=== PATIENT | male | born 1985 | race Caucasian/White ===

== ENCOUNTER → 2019-11-26 12:48 | Outpatient (BNVA) | payer SELFPAY | PROVIDERS: Visit Provider Nurse Practitioner Family | DX: R42 Dizziness and giddiness (principal) | CPT/HCPCS: 36416; 80048; 82962 ==

== ENCOUNTER 2020-01-06 21:04 | Emergency (ER) | payer SELFPAY ==
[2020-01-06 21:09] VITALS: BP 150/101; PULSE 88; RESP 14; TEMP 36.2; O2SAT 95; BMI 31.9
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
[2020-01-06] MEDS: ketorolac 30 mg/mL INJ IM (21:27)
[2020-01-06] MEDS: HYDROcodone-acetaminophen 10-325 mg Tablet 1 TAB PO (21:27)
[2020-01-06] MEDS: tetanus-dipt-pertussis 0.5 mL SDV IM (21:48)
[2020-01-06] MEDS: HYDROcodone-acetaminophen 7.5-325 mg Tablet 2 TAB PO (22:46)
[2020-01-06] MEDS: bacitracin ointment 28 gm TOPICAL (22:47)
[2020-01-06 22:49] VITALS: BP 142/86; PULSE 98; RESP 20; O2SAT 102
== END 2020-01-06 22:52 | disposition home or self-care (01) ==
LOC: ER 21:24
PROVIDERS: Emergency Provider Nurse Practitioner Family
DX: T23.251A Burn of second degree of right palm, initial encounter (principal); X08.8XXA Exposure to other specified smoke, fire and flames, initial encounter; F17.210 Nicotine dependence, cigarettes, uncomplicated; Z23 Encounter for immunization
CPT/HCPCS: 12345; 16020; 90471; 90715; 96372; 99281; 99283; J1885

== ENCOUNTER 2020-12-14 17:51 | Emergency (ER) | payer SELFPAY ==
[2020-12-14 18:09] VITALS: BP 158/101; PULSE 98; RESP 24; TEMP 37; O2SAT 98; BMI 31.9
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
[2020-12-14] MEDS: ketorolac 30 mg/mL INJ IM (18:37)
[2020-12-14 18:38] VITALS: RESP 18
[2020-12-14] MEDS: morphine 4 mg/mL SDV 1 mL IM (18:38)
[2020-12-14] MEDS: lidocaine 2% viscous 15 mL UDC 10 ML MUCOUS MEM (18:39)
[2020-12-14 18:46] VITALS: O2SAT 99
[2020-12-14] MEDS: HYDROcodone-acetaminophen 10-325 mg Tablet 1 TAB PO (19:28)
[2020-12-14 19:31] VITALS: BP 154/101; PULSE 94; RESP 18; O2SAT 98
== END 2020-12-14 19:55 | disposition home or self-care (01) ==
PROVIDERS: Emergency Provider Nurse Practitioner Family
DX: T20.12XA Burn of first degree of lip(s), initial encounter (principal); F17.200 Nicotine dependence, unspecified, uncomplicated; X13.1XXA Other contact with steam and other hot vapors, initial encounter
CPT/HCPCS: 96372; 99283; J1885; J2270

== ENCOUNTER 2021-10-18 13:32 | Emergency (ER) | payer SELFPAY ==
[2021-10-18 13:43] VITALS: BP 148/93; PULSE 114; RESP 18; TEMP 36.8; O2SAT 97; BMI 29.6
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
--- NOTE | 2021-10-18 13:57 | XR_ITS ---
WS: [id number] Exam: XR forearm LT 2V [id number] Date/Time of Exam: 10/18/2021 2:00 PM Reason For Exam: trauma There is a nondisplaced fracture of the distal ulnar metaphysis with soft tissue swelling. No other f ractures of the forearm are identified. No dislocation. XR/XR forearm LT 2V [id number] IMPRESSION: 1. Nondisplaced fracture of the distal ulna with soft tissue swelling.
--- NOTE | 2021-10-18 13:57 | XR_ITS ---
WS: [id number] Exam: XR wrist LT min 3V* [id number] Date/Time of Exam: 10/18/2021 2:00 PM Reason For Exam: trauma There is a nondisplaced fracture of the distal ulna. No other fractures are seen. No dislocation. Sof t tissue edema along the ulnar aspect of the wrist. XR/XR wrist LT min 3V* [id number] IMPRESSION: 1. Nondisplaced distal ulnar fracture with associated soft tissue swelling.
--- NOTE | 2021-10-19 11:54 | DCPLANNER ---
Addendum entered by Rocio Ordoñez 10/22/21 10:25: Patient had a follow up appointment scheduled for 10.18.21 with ortho - patient did not attend appointment. Original Note: agriculture sales account manager had message to schedule a follow up appointment for patient with ortho. agriculture sales account manager sent patients information to the front office staff at ortho. Patients information will be printed and reviewed. Clinic will call patient with information,
== END 2021-10-18 15:47 | disposition home or self-care (01) ==
PROVIDERS: Emergency Provider Physician Assistant
DX: S52.692A Other fracture of lower end of left ulna, initial encounter for closed fracture (principal); W16.612A Jumping or diving into natural body of water striking water surface causing other injury, initial encounter
CPT/HCPCS: 29105; 73090; 73110; 99283

== ENCOUNTER 2023-01-07 18:12 | Emergency (ER) | payer SELFPAY ==
[2023-01-07] VITALS (7 sets, daily range): BP systolic 105–129; BP diastolic 58–84; PULSE 91–131; RESP 16–18; TEMP 36.8–39.4; O2SAT 92–96; BMI 29.9
--- NOTE | 2023-01-07 19:02 | XRR_ITS ---
PROCEDURE INFORMATION: Exam: XR Chest Exam date and time: 01/07/2023 7:12 PM Age: 37 years old Clinical indication: Fever and other: Tachy; Additional info: Fever, tachycardia TECHNIQUE: Imaging protocol: Radiologic exam of the chest. Views: 1 view. COMPARISON: No relevant prior studies available. FINDINGS: Lungs: Unremarkable. No consolidation. Pleural spaces: Unremarkable. No pleural effusion. No pneumothorax. Heart/Mediastinum: Unremarkable. No cardiomegaly. Bones/joints: Unremarkable. XR/XR chest 1V portable [id number] IMPRESSION: No acute findings.
--- NOTE | 2023-01-07 19:02 | CTR_ITS ---
PROCEDURE INFORMATION: Exam: CT Head Without Contrast Exam date and time: 01/07/2023 7:28 PM Age: 37 years old Clinical indication: Other: Swelling and pain posterior head; Additional info: Fever headache TECHNIQUE: Imaging protocol: Computed tomography of the head without contrast. Radiation optimization: All CT scans at this facility use at least one of these dose optimization techniques: automated exposure control; mA and/or kV adjustment per patient size (includes targeted exams where dose is matched to clinical indication); or iterative reconstruction. REPORTING DATA: Count of CT and Cardiac NM exams in prior 12 months: This patient has received 0 known CTs and 0 known cardiac nuclear medicine studies in the 12 months prior to the current study. COMPARISON: No relevant prior studies available. RADIATION DOSE METRICS: Total DLP (mGy-cm): 1094.38 FINDINGS: Brain: Normal. No hemorrhage. Unremarkable white matter. No mass effect. Cerebral ventricles: No ventriculomegaly. Paranasal sinuses: Visualized sinuses are unremarkable. No fluid levels. Mastoid air cells: Visualized mastoid air cells are well aerated. Bones/joints: Unremarkable. No acute fracture. Soft tissues: Unremarkable. CT/CT head wo con* [id number] IMPRESSION: No acute intracranial abnormality.
--- NOTE | 2023-01-07 19:11 | ECG_ITS ---
[facility] Test Date: 2023-01-07 Pat Name: Dean Meyer Department: Room: Gender: Male Crime Lab Technician: : 1985 Requested By: Arthur Guerra Order Number: [id number] Ortiz MD: Shannan Nelson M.D. Measurements Intervals Otter Rate: 108 P: 41 CA: 150 QRS: 57 QRSD: 92 T: 25 QT: 291 QTc: 391 Interpretive Statements SINUS TACHYCARDIA ABNORMAL RHYTHM ECG No previous ECG available for comparison Electronically Signed On 01-08-2023 3:49:45 CDT by Shannan Nelson M.D. [id number]
[2023-01-07] MEDS: sodium chloride 0.9% 1,000 ML 999 ML IV ×2 (19:16→20:24)
--- NOTE | 2023-01-07 19:18 | CTR_ITS ---
PROCEDURE INFORMATION: Exam: CT Neck With Contrast Exam date and time: 01/07/2023 7:31 PM Age: 37 years old Clinical indication: Neck pain; Additional info: L sided neck pain, swelling, fever TECHNIQUE: Imaging protocol: Computed tomography of the neck with contrast. Radiation optimization: All CT scans at this facility use at least one of these dose optimization techniques: automated exposure control; mA and/or kV adjustment per patient size (includes targeted exams where dose is matched to clinical indication); or iterative reconstruction. Contrast material: OMNI 350; Contrast volume: 100 ml; Contrast route: INTRAVENOUS (IV); REPORTING DATA: Count of CT and Cardiac NM exams in prior 12 months: This patient has received 0 known CTs and 0 known cardiac nuclear medicine studies in the 12 months prior to the current study. COMPARISON: CT head wo con* [id number] 01/07/2023 7:28 PM RADIATION DOSE METRICS: Total DLP (mGy-cm): 294.37 FINDINGS: Pharynx: Unremarkable. No significant tonsillar enlargement. Larynx: Unremarkable. Epiglottis is normal. Prevertebral and retropharyngeal spaces: Unremarkable. Salivary glands: Normal. Glands are normal in size. Thyroid: Normal. No enlarged or calcified nodules. Lymph nodes: Diffuse mildly prominent lymph nodes throughout the cervical soft tissues. Trachea: Visualized trachea is unremarkable. Lungs: Unremarkable as visualized. Bones/joints: Unremarkable. No acute fracture. Soft tissues: Unremarkable. No significant soft tissue swelling. CT/CT neck w con* [id number] IMPRESSION: Mildly prominent lymph nodes throughout the neck which are likely reactive. Otherwise, no acute findings.
[2023-01-07] MEDS: iohexol 350 mg/mL 500 mL Btl (per mL) IV (19:38)
[2023-01-07 19:39] LABS: Basophils # 0.1 10^3/uL (0.0-0.1); Basophils % 1.3 %; Eosinophils % 0.4 %; Hematocrit 44.5 % (42.0-52.0); Hemoglobin 15.8 g/dL (11.7-16.6); Mean Corpuscular HGB Conc 35.5 g/dL (30.0-36.0); Mean Corpuscular Hemoglobin 32.2 pg (28.0-34.0); Mean Corpuscular Volume 90.6 fl (80-94); Mean Platelet Volume 10.2 fL (7.4-10.4); Monocytes # 0.4 10^3/uL (0.2-0.9); Monocytes % 9.5 %; Neutrophils % 67.4 %; Nucleated Red Blood Cells % 0 %; Platelet Count 151 10^3/cmm (130-400); Red Blood Count 4.91 10^6/uL (4.1-5.3); Red Cell Distribution Width 11.8 % (12.1-15.1); White Blood Count 4.6 10^3/uL (4.0-10.0)
[2023-01-07] MEDS: acetaminophen 500 mg Tablet 1000 MG PO (19:42)
[2023-01-07 19:43] LABS: Erythrocyte Sedimentation Rate 8 mm/hr (0-10)
[2023-01-07] MEDS: piperacillin-tazobactam 4.5 GM in sodium chloride 0.9% (plus) 50 ML IV (19:43)
[2023-01-07 19:52] LABS: Lactic Sepsis W/Reflex 0.8 mmol/L (0.5-2.2)
[2023-01-07 20:01] LABS: Alanine Aminotransferase 72 U/L (0-41); Albumin Level 4.1 g/dL (3.5-5.2); Alkaline Phosphatase 87 U/L (40-130); Anion Gap 14.9 (5-19); Aspartate Amino Transferase 37 U/L (0-40); Blood Urea Nitrogen 10 mg/dL (6-20); C Reactive Protein 29.7 mg/L (0.0-4.9); Calcium 8.7 mg/dL (8.5-10.5); Carbon Dioxide 23 mmol/L (22-29); Chloride 98 mmol/L (98-107); Creatine Phosphokinase 111 U/L (39-308); Globulin 2.8 g/dL (1.3-4.6); Glomerular Filtration Rate 61.8 mL/min (90-130); Glucose 109 mg/dL (65-115); Osmolality Calculated 274 mOsm/kg (285-295); Potassium 3.9 mmol/L (3.5-5.1); Sodium 132 mmol/L (136-145); Total Bilirubin 1.1 mg/dL (0.15-1.2); Total Protein 6.9 g/dL (6.6-8.7)
[2023-01-07] MEDS: vancomycin 1,250 MG/250 ML PIGGYBACK 250 MG IV (20:01)
[2023-01-07 20:16] LABS: Add Urine Culture? No; Add Urine Microscopic? YES; Bacteria Urine TRACE /hpf; Bilirubin Urine 1+ (Negative); Blood Urine Neg (Negative); Glucose Urine UA Norm (Normal); Ketones Urine Negative (Negative); Leukocyte Esterase Urine Negative (Negative); Nitrate Urine Negative (Negative); Protein Urine Trace (Negative); Specific Gravity, Urine 1.005 (1.005-1.030); Urine Appearance Clear (CLEAR); Urine Color Yellow (Yellow); Urobilinogen Urine 4 mg/dL (Negative); pH Urine 5 (5-7)
--- NOTE | 2023-01-07 20:41 | ED_ITS ---
HPI - Back Pain/Injury General: Chief Complaint: Back Pain/Injury Stated Complaint: headache/back pain Time Seen by Provider: 01/07/23 19:02 History of Present Illness: 37-year-old male patient with a fever and body aches. He states that he was working on a truck several days ago, and raised up under the truck scraping his head. Since that time, he developed increasing pain, swelling, drainage from the wound which is now resolved. He was seen, and placed on antibiotics, with a diagnosis of MRSA. He is experiencing neck pain on the left side with some tenderness. He is also experiencing chills. No vomiting. He states that he has had some diarrhea. No coughing or shortness of breath. He does tell me that he has had a tetanus shot in the last 5 years. Associated symptoms: Reports fever(s); Deny abdominal pain, nausea or vomiting Review of Systems Const: Reports: fever(s) Eyes: Denies: change in vision ENMT: Denies: throat pain, swelling of lips/tongue, dental pain, ear discharge, nasal congestion, nasal obstruction, post nasal drip or sinus pain Card: Denies: chest pain Resp: Denies: dyspnea, productive cough or non-productive cough GI: Denies: abdominal pain, nausea or vomiting Musc: Reports: neck pain (muscular) Skin/Breast: Reports: erythema Neuro: Reports: headache(s) [facility] ED PFSH: Social History Smoking and tobacco status: current every day smoker Alcohol intake: current Physical Exam Const: COMMON NORMALS: no acute distress GENERAL APPEARANCE: cooperative; not ill appearing and not frail appearing HENMT: COMMON NORMALS: normocephalic and Normal external nose present HEAD & SCALP: normocephalic and scalp lesion (small abrasion left parietal. escar present. minimal tenderness) FACE & SINUS: normal facial exam and face symmetric NOSE: Normal external nose present THROAT: posterior oropharynx normal and uvula midline Eye: COMMON NORMALS: Equal, round and reactive pupils present and EOMs intact bilaterally PUPIL: Yes Equal, round and reactive pupils present Neck/C-Spine: COMMON NORMALS: full ROM and no meningeal signs GENERAL: Yes trachea midline, Yes lymphadenopathy (mainly left sided) Lymphadenopathy lo cation: anterior cervical and posterior cervical and No tracheal deviation CERVICAL SPINE: No Cervical spine tenderness and Yes Paracervical muscle tenderness Chest: CHEST: Yes Symmetrical chest wall rise Resp: COMMON NORMALS: normal respiratory effort, No retractions, No use of accessory muscles and clear to auscultation bilaterally AUSCULTATION: clear to auscultation bilaterally Cardio: COMMON NORMALS: regular rhythm RATE: tachycardic RHYTHM: regular rhythm GI: COMMON NORMALS: Normal to inspection, nondistended, normoactive bowel sounds present Extremity: COMMON NORMALS: no pedal edema Neuro: PERLITA COMA SCALE: document GCS findings Snyder coma scale eye o pening: Spontaneous Perlita coma scale verbal response: Orientated Snyder coma scale motor response: Obey commands Snyder coma scale total score: 15 MENINGEAL SIGNS: Yes no meningeal signs SENSORY EXAM: Yes extremities (intact) Psych: COMMON NORMALS: speech normal SPEECH: Yes normal speech Skin: COMMON NORMALS: no rashes or lesions noted GENERAL SKIN EXAM: no rashes or lesions noted Course Vital Signs: Vital signs: Vital Signs Temperature 100.7 F H 01/07/23 21:53 Pulse Rate 91 01/07/23 22:28 Respiratory Rate 16 01/07/23 22:28 Blood Pressure 109/63 01/07/23 22:28 Pulse Oximetry 92 01/07/23 22:28 Oxygen Delivery Me thod Room Air 01/07/23 21:53 MDM - Back Pain/Injury Medical Decision Making Given the patient's high fever. Blood cultures and lactic were drawn. Patient is given a 2 L bolus, and Tylenol. White blood cell count is normal at 4.6. Creatinine is 1.3. His scalp exam is not impressive. He does have some shotty lymphadenopathy in the neck. No meningeal signs. Chest x-ray is negative. He ad CT is negative. CT of the neck soft tissues reveals lymphadenopathy/lymphadenitis CRP is 30. Lactic acid is 0.8. Urinalysis is negative. Platelet count is 150. Given mild decrease in platelet count, mild decrease in white blood cell count and high fever, tick panel is sent. Antibiotics will be switched from Bactrim to doxycycline. Patient reports she has had a tetanus shot in the last 5 years. Patient knows to return for any worsening symptoms. Labs 01/07/23 19:22 01/07/23 19:22 Radiology Impressions Chest X-Ray 01/07/23 19:02 IMPRESSION: No acute findings. Head CT 01/07/23 19:02 IMPRESSION: No acute intracranial abnormality. Neck CT 01/07/23 19:18 IMPRESSION: Mildly prominent lymph nodes throughout the neck which are likely reactive. Otherwise, no acute findings. Laboratory Results WBC 4.6 10^3/uL (4.0-10.0) 01/07/23 19: RBC 4.91 10^6/uL (4.1-5.3) 01/07/23: Hgb 15.8 g/dL (11.7-16.6) 01/07/23 19: Hct 44.5 % (42.0-52.0) 01/07/23: MCV 90.6 fl (80-94) 01/07/23: MCH 32.2 pg (28.0-34.0) 01/07/23: MCHC 35.5 g/dL (30.0-36.0) 01/07/23: RDW 11.8 % (12.1-15.1) L 01/07/23: Plt Count 151 10^3/cmm (130-400) 01/07/23: MPV 10.2 fL (7.4-10.4) 01/07/23: Neut % (Auto) 67.4 % 01/07/23: Lymph % (Auto) 21.0 % 01/07/23: [place] % (Auto) 9.5 % 01/07/23: Eos % (Auto) 0.4 % 01/07/23: Baso % (Auto) 1.3 % 01/07/23: Neut # (Auto) 3.10 10^3/uL (1.8-7.7) 01/07/23: Lymph # (Auto) 1.0 10^3/uL (0.8-4.8) 01/07/23: [place] # (Auto) 0.4 10^3/uL (0.2-0.9) 01/07/23 19: Eos # (Auto) 0.0 10^3/uL (0.0-0.8) 01/07/23: Baso # (Auto) 0.1 10^3/uL (0.0-0.1) 01/07/23 19:22 Nucleated RBC % (auto) 0 % 01/07/23 19:22 Nucleated RBCs # 0.0 /100WBC 01/07/23 19:22 ESR 8 mm/hr (0-10) 01/07/23 19:22 Sodium 132 mmol/L (136-145) L 01/07/23 19:22 Potassium 3.9 mmol/L (3.5-5.1) 01/07/23 19:22 Chloride 98 mmol/L (98-107) 01/07/23 19:22 Carbon Dioxide 23 mmol/L (22-29) 01/07/23 19:22 Anion Gap 14.9 (5-19) 01/07/23 19:22 BUN 10 mg/dL (6-20) 01/07/23 19:22 Creatinine 1.3 mg/dL (0.7-1.2) H 01/07/23 19:22 GFR Calculation 61.8 mL/min (90-130) L 01/07/23 19:22 Glucose 109 mg/dL (65-115) 01/07/23 19:22 Calculated Osmolality 274 mOsm/kg (285-295) L 01/07/23 19:22 Lactic Acid 0.8 mmol/L (0.5-2.2) 01/07/23 19:22 Calcium 8.7 mg/dL (8.5-10.5) 01/07/23 19:22 Total Bilirubin 1.1 mg/dL (0.15-1.2) 01/07/23 19:22 AST 37 U/L (0-40) 01/07/23 19:22 ALT 72 U/L (0-41) H 01/07/23 19:22 Alkaline Phosphatase 87 U/L (40-130) 01/07/23 19:22 Creatine Kinase 111 U/L (39-308) 01/07/23 19:22 C-Reactive Protein 29.7 mg/L (0.0-4.9) H 01/07/23 19:22 Total Protein 6.9 g/dL (6.6-8.7) 01/07/23 19:22 Albumin 4.1 g/dL (3.5-5.2) 01/07/23 19:22 Globulin 2.8 g/dL (1.3-4.6) 01/07/23 19:22 Urine Color Yellow (Yellow) 01/07/23 20:00 Urine Appearance Clear (CLEAR) 01/07/23 20:00 Urine pH 5 (5-7) 01/07/23 20:00 Ur Specific [place] 1.005 (1.005-1.030) 01/07/23 20:00 Urine Protein Trace (Negative) 01/07/23 20:00 Urine Glucose (UA) Norm (Normal) 01/07/23 20:00 Urine Ketones Negative (Negative) 01/07/23 20:00 Urine Blood Neg (Negative) 01/07/23 20:00 Urine Nitrate Negative (Negative) 01/07/23 20:00 Urine Bilirubin 1+ (Negative) H 01/07/23 20:00 Urine Urobilinogen 4 mg/dL (Negative) H 01/07/23 20:00 Ur Leukocyte Esterase Negative (Negative) 01/07/23 20:00 Urine RBC None /hpf (0-2) 01/07/23 20:00 Urine WBC None /hpf (0-5) 01/07/23 20:00 Ur Squamous Epith Cells None /hpf (0-5) 01/07/23 20:00 Amorphous Sediment Not Reportable 01/07/23 20:00 Urine Bacteria Trace /hpf (NONE) 01/07/23 20:00 Discharge Plan Discharge Patient Disposition: Home Clinical Impression: Acute lymphadenitis of face, head and neck Condition: Stable Prescriptions: New doxycycline hyclate 100 mg tablet 100 mg PO BID 14 Days Qty: 28 0RF Continued hydrocodone-acetaminophen 5-325 mg tablet 1 tab PO Q6H PRN (Reason: pain) Qty: 7 0RF No Action nystatin 100,000 unit/mL suspension 500,000 unit buccal TID 7 Days Qty: 105 0RF Rx Instructions: administer 1/2 of dose in each side of the mouth bacitracin 500 unit/gram ointment 1 applic topical BID Qty: 30 1RF Lidocaine Viscous 2 % solution 10 ml mucous membrane QID PRN (Reason: pain) Qty: 100 0RF Discharge Orders: Discharge ED (Routine); Ordered 01/07/23 Ordered By: Arthur Hanson Patient Instructions: Lymphadenitis, Opioid Safety, Pain Management Activity Restrictions/Additional Instructions: Switch your antibiotic to the antibiotic prescribed. Take Tylenol for temperatures. Watch temperature closely, at least 3 times daily for the next several days. Return for continued fever despite 3-4 doses of antibiotics, worsening pain despite treatment, mental status changes, rash, any other concerning symptoms. Coding Level of Care Code ED Home Health Clinical Supervisor for Andriy Mancini
[2023-01-09 15:20] LABS: Lyme AB Screen <0.90 index
[2023-01-15 15:58] LABS: RMSF IGG NOT DETECTED; RMSF IGM NOT DETECTED
[2023-01-15 17:03] LABS: E. Chaffeensis AB IGG <1:64; E. Chaffeensis AB IGM <1:20
== END 2023-01-07 22:29 | disposition home or self-care (01) ==
PROVIDERS: Emergency Provider Emergency Medicine
DX: L04.0 Acute lymphadenitis of face, head and neck (principal); F17.210 Nicotine dependence, cigarettes, uncomplicated
CPT/HCPCS: 70450; 70491; 71045; 80053; 81001; 82550; 83605; 85025; 85651; 86140; 86618; 86666; 86757; 87040; 93005; 96365; 96367; 99285; J2543; J3370; J7030; Q9967